=== PATIENT | male | born 1950 | race Caucasian/White ===

== ENCOUNTER 2022-11-30 05:31 | Observation (INO) | payer MEDICARE ==
[2022-11-21 09:33] LABS: BASOPHILS # (AUTO) 0.1 (0.0-0.1); BASOPHILS % 0.7 % (0.0-1.0); EOSINOPHILS # (AUTO) 0.5 (0.0-0.4); EOSINOPHILS % 5.9 % (0.0-6.0); HEMATOCRIT 36.8 % (38.2-49.6); HEMOGLOBIN 12.3 g/dL (14.0-18.0); LYMPHOCYTES # (AUTO) 2.3 (1.0-3.2); LYMPHOCYTES % 26.7 % (18.0-39.1); MEAN CORPUSCULAR HEMOGLOBIN 32.2 pg (28-32); MEAN CORPUSCULAR HGB CONC 33.4 g/dL (31-35); MEAN CORPUSCULAR VOLUME 96.3 fL (81-99); MONOCYTES # (AUTO) 0.8 (0.2-0.8); MONOCYTES % 9.3 % (4.4-11.3); NEUTROPHILS # (AUTO) 4.8 (2.1-6.9); NEUTROPHILS % 56.1 % (38.7-80.0); PLATELET COUNT 274 x10e3/uL (140-360); RED BLOOD COUNT 3.82 x10e6/uL (4.3-5.7)
[2022-11-21 10:13] LABS: ANION GAP 16.3 mmol/L (8-16); CALCIUM 8.8 mg/dL (8.4-10.2); CREATININE, SERUM 0.83 mg/dL (0.72-1.25); POTASSIUM 4.3 mmol/L (3.5-5.1)
[2022-11-21 10:35] LABS: INR 0.96
[2022-11-21 10:37] LABS: PARTIAL THROMBOPLASTIN TIME 29.7 seconds (23.8-35.5)
[~2022-11-30] VITALS: Ht 172.7 cm; Wt 101.2 kg
[~2022-11-30 05:31] MED LIST: ATORVASTATIN CA20 MG PO; BC POWDER PACK1 EAC1 PO; CARVEDILOL25 MG PO; FINASTERIDE5 MG PO; FLOMAX0.4 MG PO; LISINOPRIL10 MG PO; LYRICA100 MG PO; MELATONIN3 MG PO; OMEPRAZOLE40 MG PO; PRESERVISION A1 EAC2 PO; PROVENTIL HFA6.7 GM INH; RESTASIS1 EACH; SYMBICORT 80-10.2 GM INH; THROMBIN FOR SOLN 5,000 UNIT VIAL ONE; Vancomycin IV 1 GM VIAL ONE
[2022-11-30] MEDS ORDERED: Vancomycin IV 1 GM VIAL ONE (06:48)
[2022-11-30] MEDS ORDERED: LIDOCAINE 1% W/EPINEPHRINE 20 ML VIAL ONE (06:48)
[2022-11-30] MEDS ORDERED: THROMBIN FOR SOLN 5,000 UNIT VIAL ONE (06:48)
[2022-11-30] MEDS ORDERED: CEFAZOLIN SODIUM 2 GM ONE (06:52)
[2022-11-30] MEDS ORDERED: ACETAMINOPHEN 1000 MG/100 ML 100 ML IV ONE (07:14)
[2022-11-30] MEDS ORDERED: SUGAMMADEX SODIUM 200 MG/2 ML VIAL IV ONE (07:15)
[2022-11-30] MEDS ORDERED: MORPHINE SULFATE 5 MG/ML VIAL IM PRN (09:45)
[2022-11-30] MEDS ORDERED: MAGNESIUM/ALUMINUM/SIMETHICONE 30 ML UDC PO PRN (09:45)
[2022-11-30] MEDS ORDERED: ONDANSETRON HCL INJ 2MG/ML 2ML 2 MG/ML VIAL IV PRN (09:45)
[2022-11-30] MEDS ORDERED: ALBUTEROL SULFATE HFA 8GM INHALATION AEROSOL INH PRN (09:45)
[2022-11-30] MEDS ORDERED: HYDROMORPHONE 2MG/ML 2 MG/ML ML IV PRN (09:45)
[2022-11-30] MEDS ORDERED: OXYCODONE/ACETAMINOPHEN 5-325 1 EACH TABLET PO PRN (09:45)
[2022-11-30] MEDS ORDERED: PROMETHAZINE HCL (IM) 25 MG/ML VIAL IM PRN (09:45)
[2022-11-30] MEDS ORDERED: ZOLPIDEM TARTRATE 5 MG TAB PO PRN (09:45)
[2022-11-30] MEDS ORDERED: ACETAMINOPHEN 325 MG TAB PO PRN (09:45)
[2022-11-30] MEDS ORDERED: CARISOPRODOL 350 MG TAB PO PRN (09:45)
[2022-11-30] MEDS ORDERED: HYDROCODON-ACE1 EA12 PO (10:48)
[2022-11-30 11:09] VITALS: BP_SYST 151; BP_SYST 154; BP_DIAS 81; BP_DIAS 91
[2022-11-30] MEDS ORDERED: ROCURONIUM BROMIDE 10 MG/ML 5ML VIAL IV ONE (12:11)
[2022-11-30] MEDS ORDERED: POVIDONE IODINE 0.05% 0.05 % ML PO ONE (12:11)
[2022-11-30] MEDS ORDERED: KETOROLAC TROMETHAMINE 30 MG/ML VIAL ONE (12:11)
[2022-11-30] MEDS ORDERED: ONDANSETRON HCL INJ 2MG/ML 2ML 2 MG/ML VIAL ONE (12:11)
[2022-11-30] MEDS ORDERED: GLYCOPYRROLATE INJ 0.2 MG/ML VIAL ONE (12:11)
[2022-11-30] MEDS ORDERED: LIDOCAINE HCL 2% LOCAL INJ 5 ML SDV VIAL INJ ONE (12:11)
[2022-11-30] MEDS ORDERED: DEXAMETHASONE SOD PHOS INJ 4 MG/ML SDV ONE (12:11)
[2022-11-30] MEDS ORDERED: PROPOFOL IV EMULSION 10 MG/ML 20 ML VIAL ONE (12:11)
[2022-11-30] MEDS ORDERED: NEOSTIGMINE 1 MG/ML 10ML VIAL ONE (12:11)
[2022-11-30] MEDS ORDERED: SEVOFLURANE INHAL SOLN 250 ML PEN BTL ONE (12:11)
[2022-11-30 12:19] VITALS: BP 154/91
[2022-11-30] MEDS: LACTATED RINGER'S 1,000 ML IV SCH ×2 (12:19→16:14)
[2022-11-30 12:20] VITALS: BP 154/91
[2022-11-30] MEDS ORDERED: FENTANYL CITRATE/PF 100MCG/2 ML INJ ONE (12:33)
[2022-11-30] MEDS: PREGABALIN 50 MG CAP PO SCH (16:24)
[2022-11-30] MEDS: LISINOPRIL 20 MG TAB PO SCH (16:24)
[2022-11-30 16:44] VITALS: BP 134/89
[2022-11-30] MEDS ORDERED: BUDESONIDE/FORMOTEROL FUMARATE 80/4.5MCG 6.9 GM INH AEROSOL IH SCH (19:00)
[2022-11-30 20:00] VITALS: BP 141/83
[2022-11-30] MEDS ORDERED: TAMSULOSIN HCL 0.4 MG CAP PO SCH (21:00)
[2022-11-30] MEDS ORDERED: MELATONIN 3 MG TAB PO SCH (21:00)
[2022-11-30] MEDS ORDERED: FINASTERIDE 5 MG TAB PO SCH (21:00)
[2022-11-30] MEDS: (Cyclosporine (Restasis) 1 DROP) OP SCH (21:00)
[2022-11-30] MEDS ORDERED: ATORVASTATIN 40 MG TAB PO SCH (21:00)
[2022-12-01] MEDS: LACTATED RINGER'S 1,000 ML IV SCH (02:25)
[2022-12-01 08:36] VITALS: BP 141/83
[2022-12-01 08:41] VITALS: BP 143/87
[2022-12-01] MEDS ORDERED: PANTOPRAZOLE SOD 40 MG TABEC PO SCH (09:00)
[2022-12-01] MEDS: (Cyclosporine (Restasis) 1 DROP) OP SCH (09:00)
[2022-12-01] MEDS ORDERED: CARVEDILOL 12.5 MG TAB PO SCH (09:00)
[2022-12-01] MEDS ORDERED: NON-FORMULARY MEDICATION (Carvedilol 25 MG) PO SCH (09:00)
[2022-12-01] MEDS: PREGABALIN 50 MG CAP PO SCH (09:09)
[2022-12-01] MEDS: LISINOPRIL 20 MG TAB PO SCH (09:10)
== END 2022-12-01 10:36 | disposition home or self-care (01) ==
LOC: OR 05:31 → PACU V 09:40 → MED/SURG3 10:47
PROVIDERS: ADMIT Neurological Surgery; ATTEND Neurological Surgery
DX: M48.062 Spinal stenosis, lumbar region with neurogenic claudication (principal); Z01.818 Encounter for other preprocedural examination; Z20.822 Contact with and (suspected) exposure to COVID-19; I10 Essential (primary) hypertension; Z86.73 Personal history of transient ischemic attack (TIA), and cerebral infarction without residual deficits; N40.1 Benign prostatic hyperplasia with lower urinary tract symptoms
CPT/HCPCS: 0223U ×2; 36415 ×2; 63047; 63048; 71046; 72020; 80048; 85025; 85610; 85730; 86850 ×2; 86900 ×2; 88304; 93005; 94664; 94799 ×2; 97161; G0378 ×2; J0131; J0690 ×2; J1100; J1885; J2001; J2405; J2704; J2710; J3010; J3370; J7121; S0164

== ENCOUNTER 2025-05-29 13:20 | Inpatient (IN) | payer MEDICARE ==
[~2025-05-29] VITALS: Ht 172.7 cm; Wt 104.6 kg
[~2025-05-29 13:20] MED LIST changes: +HYDROCODON-ACE1 EA12 PO; -THROMBIN FOR SOLN 5,000 UNIT VIAL ONE; -Vancomycin IV 1 GM VIAL ONE
[2025-05-29 15:32] LABS: BASOPHILS % 0.3 % (0.0-1.0); EOSINOPHILS % 5.2 % (0.0-6.0); LYMPHOCYTES % 8.0 % (18.0-39.1); MONOCYTES % 8.0 % (4.4-11.3); NEUTROPHILS % 75.4 % (38.7-80.0); RED CELL DISTRIBUTION WIDTH 15.2 % (11.7-14.4)
[2025-05-29 15:39] LABS: LEUKOCYTE ESTERASE ,URINE NEGATIVE (NEGATIVE); PROTEIN,URINE DIPSTICK 1+ (NEGATIVE); URINE UROBILINOGEN 0.2 mg/dL (0.2 - 1)
[2025-05-29] MEDS: SODIUM CHLORIDE 0.9% 1000ML 1,000 ML IV STA (15:42)
[2025-05-29] MEDS: ONDANSETRON HCL INJ 2MG/ML 2ML 2 MG/ML VIAL IV STA (15:43)
[2025-05-29 15:49] LABS: EPITHELIAL CELLS,URINE FEW /LPF; INR 1.04
[2025-05-29 15:56] LABS: EST GLOMERULAR FILTRATION RATE 90.0 ML/MIN (>=60)
[2025-05-29] MEDS ORDERED: IOPAMIDOL 370 MG/ML 100 ML INFUS..BTL INJ ONE (16:25)
[2025-05-29] MEDS: MAGNESIUM SULFATE 2GM/50ML 50 ML IV ONE ×2 (16:37→20:28)
[2025-05-29 17:45] VITALS: TEMP 97.6
[2025-05-29 18:43] VITALS: PULSE 91; RESP 24; O2SAT 97
[2025-05-29] MEDS: ALBUTEROL/IPRATROPIUM 3 ML NEB NEB ONE (18:46)
[2025-05-29 18:50] LABS: CORONAVIRUS COVID-19 AG NEGATIVE (NEGATIVE)
[2025-05-29] MEDS ORDERED: ONDANSETRON HCL INJ 2MG/ML 2ML 2 MG/ML VIAL IV PRN (19:30)
[2025-05-29] MEDS ORDERED: Morphine 2mg Syringe 2 MG/ML SYR IV PRN (19:30)
[2025-05-29 20:00] VITALS: PULSE 87; RESP 19
[2025-05-29] MEDS: LACTATED RINGER'S 1,000 ML INJ ONE (20:29)
[2025-05-29 21:26] VITALS: BP 138/51; PULSE 73; RESP 20; TEMP 98.9; O2SAT 99
[2025-05-29 21:30] VITALS: BP 138/51; PULSE 73; RESP 20; TEMP 98.9; O2SAT 99
[2025-05-29] MEDS ORDERED: FOLIC ACID0.4 MG PO (23:25)
[2025-05-29 23:33] VITALS: PULSE 76; RESP 20; O2SAT 98
[2025-05-29] MEDS ORDERED: [UNRECOGNIZED DRUG - CODE] PO (23:33)
[2025-05-29] MEDS ORDERED: SODIUM CHLORI1000 MG PO (23:33)
[2025-05-29] MEDS ORDERED: CENTRUM ADULTS1 EACH PO (23:33)
[2025-05-29] MEDS: ALBUTEROL/IPRATROPIUM 3 ML NEB NEB SCH (23:43)
[2025-05-30] VITALS (11 sets, daily range): BP systolic 141–186; BP diastolic 81–93; PULSE 63–106; RESP 18–22; TEMP 97.6–99; O2SAT 95–100
[2025-05-30] MEDS ORDERED: DIPHENHYDRAMINE HCL 25 MG CAP PO PRN (02:00)
[2025-05-30] MEDS ORDERED: SIMETHICONE 80 MG CHEW PO PRN (02:00)
[2025-05-30] MEDS ORDERED: LIDOCAINE 4% PATCH TP PRN (02:00)
[2025-05-30] MEDS ORDERED: ACETAMINOPHEN 325 MG TAB PO PRN (02:00)
[2025-05-30] MEDS ORDERED: DEXTROSE 50% SYRINGE 50 ML IV PRN (02:00)
[2025-05-30] MEDS ORDERED: DOCUSATE SODIUM 100 MG CAP PO PRN (02:00)
[2025-05-30] MEDS ORDERED: ALBUTEROL/IPRATROPIUM 3 ML NEB NEB PRN (02:00)
[2025-05-30 04:47] LABS: BASOPHILS % 0.2 % (0.0-1.0); EOSINOPHILS % 3.3 % (0.0-6.0); LYMPHOCYTES % 5.7 % (18.0-39.1); MONOCYTES % 7.4 % (4.4-11.3); NEUTROPHILS % 81.1 % (38.7-80.0); RED CELL DISTRIBUTION WIDTH 15.2 % (11.7-14.4)
[2025-05-30 07:23] LABS: EST GLOMERULAR FILTRATION RATE 95.0 ML/MIN (>=60)
[2025-05-30] MEDS: PANTOPRAZOLE SOD 40 MG TABEC PO SCH (08:53)
[2025-05-30] MEDS: BENZONATATE 100 MG CAP PO PRN (08:56)
[2025-05-30] MEDS: SODIUM CHLORIDE 1 GM TAB PO SCH (16:05)
[2025-05-30] MEDS: ENOXAPARIN SOD INJ 40 MG/0.4 ML SYR SC SCH (16:05)
[2025-05-30] MEDS: SODIUM CHLORIDE 0.9% 1000ML 1,000 ML IV SCH (16:05)
[2025-05-30] MEDS ORDERED: BISACODYL 10 MG SUPP PR PRN (17:30)
[2025-05-30] MEDS: FLUTICASONE PROPIONATE NASAL SPRAY NS SCH (17:30)
[2025-05-30] MEDS: HYDRALAZINE HCL 20 MG/ML VIAL IV PRN (17:34)
[2025-05-30] MEDS: POTASSIUM CHLORIDE 20 MEQ TAB CR PO STA (18:01)
[2025-05-30] MEDS: CARVEDILOL 12.5 MG TAB PO SCH (18:02)
[2025-05-30] MEDS: BISACODYL 10 MG SUPP PR ONE (18:02)
[2025-05-30] MEDS: GUAIFENESIN/CODEINE 5 ML LIQD PO PRN (18:30)
[2025-05-30] MEDS: TAMSULOSIN HCL 0.4 MG CAP PO SCH (20:56)
[2025-05-30] MEDS: ATORVASTATIN 40 MG TAB PO SCH (20:57)
[2025-05-30 23:42] LABS: % IRON SATURATION 5 % (15-50)
[2025-05-31] VITALS (10 sets, daily range): BP systolic 120–160; BP diastolic 73–95; PULSE 74–97; RESP 18–22; TEMP 97.3–98.4; O2SAT 96–100
[2025-05-31] MEDS: BUDESONIDE/FORMOTEROL 80/4.5 MCG INHALER IH SCH (07:03)
[2025-05-31 07:44] LABS: BASOPHILS % 0.2 % (0.0-1.0); EOSINOPHILS % 4.2 % (0.0-6.0); LYMPHOCYTES % 4.9 % (18.0-39.1); MONOCYTES % 7.3 % (4.4-11.3); NEUTROPHILS % 79.4 % (38.7-80.0); RED CELL DISTRIBUTION WIDTH 15.4 % (11.7-14.4)
[2025-05-31 07:58] LABS: OSMOLALITY,SERUM 244 mOsm/kg (278-305)
[2025-05-31 07:59] LABS: PHOSPHORUS 3.5 MG/DL (2.3-4.7)
[2025-05-31 08:00] LABS: EST GLOMERULAR FILTRATION RATE 97.0 ML/MIN (>=60)
[2025-05-31] MEDS: LISINOPRIL 20 MG TAB PO SCH (09:16)
[2025-05-31] MEDS: ASPIRIN 81 MG ENTERIC COATED PO SCH (09:16)
[2025-05-31] MEDS: LORATADINE 10 MG TAB PO SCH (09:17)
[2025-05-31] MEDS: FOLIC ACID 1 MG TAB PO SCH (09:35)
[2025-05-31] MEDS: SODIUM FERRIC GLUCONATE COMPLX 250 MG in SODIUM CHLORIDE 0.9% 100 ML IV SCH (10:22)
[2025-05-31 18:37] LABS: EST GLOMERULAR FILTRATION RATE 97 ML/MIN (>=60)
[2025-06-01] VITALS (14 sets, daily range): BP systolic 132–149; BP diastolic 67–92; PULSE 58–93; RESP 18–22; TEMP 97.3–98; O2SAT 91–100
[2025-06-01 05:47] LABS: BASOPHILS % 0.3 % (0.0-1.0); EOSINOPHILS % 3.1 % (0.0-6.0); LYMPHOCYTES % 4.6 % (18.0-39.1); MONOCYTES % 8.2 % (4.4-11.3); NEUTROPHILS % 79.7 % (38.7-80.0); RED CELL DISTRIBUTION WIDTH 15.2 % (11.7-14.4)
[2025-06-01 06:27] LABS: EST GLOMERULAR FILTRATION RATE 99 ML/MIN (>=60)
[2025-06-01] MEDS ORDERED: IRON SUCROSE 100 MG in SODIUM CHLORIDE 0.9% 100 ML IV SCH (09:00)
[2025-06-01 16:22] LABS: EST GLOMERULAR FILTRATION RATE 96 ML/MIN (>=60)
[2025-06-01] MEDS: MAGNESIUM SULFATE 2GM/50ML 50 ML IV SCH (17:02)
[2025-06-01] MEDS: BISACODYL 5 MG TAB EC PO ONE ×2 (17:04→18:33)
[2025-06-01] MEDS: KCL 20MEQ/.9 SOD CHL 1,000 ML IV SCH (17:18)
[2025-06-01] MEDS: FUROSEMIDE INJ 10 MG/ML 4 ML VIAL IV ONE (17:25)
[2025-06-01] MEDS: SODIUM CHLORIDE 1 GM TAB PO SCH (17:25)
[2025-06-01] MEDS: MELATONIN 5 MG TABLET PO PRN (20:28)
[2025-06-01] MEDS: CITRATE OF MAGNESIA 300ML BOTTLE PO ONE (22:24)
[2025-06-02] VITALS (13 sets, daily range): BP systolic 125–177; BP diastolic 70–89; PULSE 78–101; RESP 18–22; TEMP 97.4–98.5; O2SAT 94–100
[2025-06-02] MEDS: CITRATE OF MAGNESIA 300ML BOTTLE PO ONE (05:16)
[2025-06-02 05:54] LABS: EST GLOMERULAR FILTRATION RATE 95 ML/MIN (>=60)
[2025-06-02 07:13] LABS: FOLATE (REF LAB) 13.8 ng/mL (>3.0)
[2025-06-02] MEDS: MAGNESIUM SULFATE 2GM/50ML 50 ML IV ONE (10:51)
[2025-06-02] MEDS: POTASSIUM CHLORIDE 20MEQ/100ML 200 ML IV ONE (10:52)
[2025-06-02] MEDS: D5NS/KCL 20MEQ 1,000 ML IV SCH (17:14)
[2025-06-02] MEDS: FUROSEMIDE INJ 10 MG/ML 2 ML VIAL IV ONE (22:11)
[2025-06-03] VITALS (10 sets, daily range): BP systolic 136–163; BP diastolic 72–78; PULSE 69–99; RESP 18–20; TEMP 97.5–97.9; O2SAT 92–100
[2025-06-03 05:13] LABS: BASOPHILS % 0.2 % (0.0-1.0); EOSINOPHILS % 1.2 % (0.0-6.0); LYMPHOCYTES % 4.7 % (18.0-39.1); MONOCYTES % 7.3 % (4.4-11.3); NEUTROPHILS % 84.4 % (38.7-80.0); RED CELL DISTRIBUTION WIDTH 15.4 % (11.7-14.4)
[2025-06-03 05:46] LABS: EST GLOMERULAR FILTRATION RATE 96.0 ML/MIN (>=60); PHOSPHORUS 3.5 MG/DL (2.3-4.7)
[2025-06-03] MEDS: KCL 20MEQ/.9 SOD CHL 1,000 ML IV SCH (09:30)
[2025-06-03] MEDS: POTASSIUM CHLORIDE 20MEQ/100ML 100 ML IV SCH (10:25)
[2025-06-03] MEDS: BUMETANIDE INJ 0.25MG/ML 4ML VIAL IV ONE (10:35)
[2025-06-03] MEDS ORDERED: LIDOCAINE HCL 2% LOCAL INJ 5 ML SDV VIAL INJ ONE (14:55)
[2025-06-03] MEDS ORDERED: PROPOFOL IV EMULSION 10 MG/ML 20 ML VIAL ONE ×2 (14:55→15:16)
[2025-06-03] MEDS ORDERED: METOCLOPRAMIDE HCL 10 MG/2ML VIAL ONE (15:12)
[2025-06-03] MEDS ORDERED: BENZOCAINE/TETRACAINE/BUTAMBEN AERO SPRAY 56 GM CAN TOP ONE (18:00)
[2025-06-04] VITALS (13 sets, daily range): BP systolic 141–163; BP diastolic 72–90; PULSE 87–99; RESP 16–19; TEMP 97.7–98.8; O2SAT 93–100
[2025-06-04 05:29] LABS: BASOPHILS % 0.2 % (0.0-1.0); EOSINOPHILS % 0.6 % (0.0-6.0); LYMPHOCYTES % 4.4 % (18.0-39.1); MONOCYTES % 6.9 % (4.4-11.3); NEUTROPHILS % 86.9 % (38.7-80.0); RED CELL DISTRIBUTION WIDTH 15.9 % (11.7-14.4)
[2025-06-04 05:58] LABS: EST GLOMERULAR FILTRATION RATE 96.0 ML/MIN (>=60)
[2025-06-04] MEDS: CHLORASEPTIC SPRAY 177 ML BTL MM PRN (08:59)
[2025-06-04] MEDS: POTASSIUM CHLORIDE 20MEQ/100ML 100 ML IV SCH (10:54)
[2025-06-04] MEDS: FUROSEMIDE INJ 10 MG/ML 4 ML VIAL IV SCH (22:06)
[2025-06-05] VITALS (12 sets, daily range): BP systolic 114–144; BP diastolic 64–75; PULSE 82–100; RESP 16–19; TEMP 97.5–98.8; O2SAT 94–100
[2025-06-05] MEDS ORDERED: ROCURONIUM BROMIDE 1 ML IV ONE (12:12)
[2025-06-05] MEDS ORDERED: SUCCINYLCHOLINE CHLORIDE 20 MG/ML 10ML VIAL ONE (12:12)
[2025-06-05] MEDS ORDERED: PROPOFOL IV EMULSION 10 MG/ML 20 ML VIAL ONE (12:12)
[2025-06-05] MEDS ORDERED: FENTANYL CITRATE/PF 100MCG/2 ML INJ ONE (12:12)
[2025-06-05] MEDS ORDERED: LIDOCAINE HCL 2% LOCAL INJ 5 ML SDV VIAL INJ ONE (12:12)
[2025-06-05] MEDS ORDERED: SUGAMMADEX SODIUM 200 MG/2 ML VIAL IV ONE (12:12)
[2025-06-05] MEDS ORDERED: SEVOFLURANE INHAL SOLN 250 ML PEN BTL ONE (12:12)
[2025-06-05] MEDS ORDERED: ONDANSETRON HCL INJ 2MG/ML 2ML 2 MG/ML VIAL ONE (12:12)
[2025-06-05] MEDS ORDERED: ACETAMINOPHEN 1000 MG/100 ML 100 ML IV ONE (12:12)
[2025-06-05] MEDS ORDERED: DEXAMETHASONE SOD PHOS INJ 4 MG/ML SDV ONE (12:12)
[2025-06-05] MEDS ORDERED: MIDAZOLAM HCL 2 MG/2 ML VIAL ONE (12:50)
[2025-06-05] MEDS ORDERED: HYDROCODONE/APAP 7.5MG-325MG 1 EA TAB PO PRN (15:30)
[2025-06-05] MEDS ORDERED: ACETAMINOPHEN 1000 MG/100 ML IV PRN (15:30)
[2025-06-05 16:51] LABS: PHOSPHORUS 4.9 MG/DL (2.3-4.7)
[2025-06-06] VITALS (11 sets, daily range): BP systolic 102–144; BP diastolic 62–78; PULSE 84–101; RESP 18–24; TEMP 97.6–98.8; O2SAT 92–99
[2025-06-06 06:16] LABS: BASOPHILS % 0.2 % (0.0-1.0); EOSINOPHILS % 1.3 % (0.0-6.0); LYMPHOCYTES % 4.5 % (18.0-39.1); MONOCYTES % 6.7 % (4.4-11.3); NEUTROPHILS % 85.9 % (38.7-80.0); RED CELL DISTRIBUTION WIDTH 16.8 % (11.7-14.4)
[2025-06-06 06:35] LABS: EST GLOMERULAR FILTRATION RATE 94.0 ML/MIN (>=60)
[2025-06-06] MEDS: MAGNESIUM HYDROXIDE 30 ML UDC PO ONE (11:36)
[2025-06-06] MEDS: POTASSIUM CHLORIDE 20 MEQ TAB CR PO PRN (14:45)
[2025-06-06] MEDS: BISACODYL 10 MG SUPP PR SCH (21:09)
[2025-06-07] VITALS (10 sets, daily range): BP systolic 120–139; BP diastolic 63–76; PULSE 82–91; RESP 18–21; TEMP 98–98.8; O2SAT 92–100
[2025-06-07 05:59] LABS: BASOPHILS % 0.3 % (0.0-1.0); EOSINOPHILS % 3.1 % (0.0-6.0); LYMPHOCYTES % 6.2 % (18.0-39.1); MONOCYTES % 9.0 % (4.4-11.3); NEUTROPHILS % 79.3 % (38.7-80.0); RED CELL DISTRIBUTION WIDTH 17.2 % (11.7-14.4)
[2025-06-07 06:27] LABS: EST GLOMERULAR FILTRATION RATE 92.0 ML/MIN (>=60); PHOSPHORUS 3.1 MG/DL (2.3-4.7)
[2025-06-07] MEDS ORDERED: ENOXAPARIN SOD INJ 40 MG/0.4 ML SYR SC SCH (17:00)
[2025-06-08 09:57] LABS: KAPPA/LAMBDA RATIO 0.76
[2025-06-08 09:58] LABS: KAPPA LIGHT CHAINS 20.2; LAMBDA LIGHT CHAINS 26.5
[2025-06-08 09:59] LABS: GLOBULIN TOTAL 3.1; SPE GAMMA GLOBULIN 0.7; SPE TOTAL PROTEIN 5.2
[2025-06-08 10:00] LABS: SPE ALPHA 2 GLOBULIN 1.2
[2025-06-08 10:01] LABS: A/G RATIO 0.7; SPE ALPHA 1 GLOBULIN 0.5
== END 2025-06-07 17:00 | disposition home or self-care (01) | DRG 335 ==
LOC: ER 14:46 → ERHOLD 19:26 → MED/SURG2 21:26
PROVIDERS: ADMIT Internal Medicine; ATTEND Internal Medicine
PROC: 0DB68ZX Excision of Stomach, Via Natural or Artificial Opening Endoscopic, Diagnostic (ICD-10-PCS; 2025-06-03)
PROC: 0DB78ZX Excision of Stomach, Pylorus, Via Natural or Artificial Opening Endoscopic, Diagnostic (ICD-10-PCS; 2025-06-03)
PROC: 0DBU4ZX Excision of Omentum, Percutaneous Endoscopic Approach, Diagnostic (ICD-10-PCS; 2025-06-05)
PROC: 0DNU4ZZ Release Omentum, Percutaneous Endoscopic Approach (ICD-10-PCS; principal; 2025-06-05 13:35)
DX: K42.0 Umbilical hernia with obstruction, without gangrene (principal); I50.33 Acute on chronic diastolic (congestive) heart failure; J96.01 Acute respiratory failure with hypoxia; K55.069 Acute infarction of intestine, part and extent unspecified; J69.0 Pneumonitis due to inhalation of food and vomit; K56.7 Ileus, unspecified; E87.1 Hypo-osmolality and hyponatremia; R18.8 Other ascites; K56.609 Unspecified intestinal obstruction, unspecified as to partial versus complete obstruction; K59.00 Constipation, unspecified; E88.09 Other disorders of plasma-protein metabolism, not elsewhere classified; E78.5 Hyperlipidemia, unspecified; R55 Syncope and collapse; E83.42 Hypomagnesemia; J06.9 Acute upper respiratory infection, unspecified; D50.9 Iron deficiency anemia, unspecified; K21.00 Gastro-esophageal reflux disease with esophagitis, without bleeding; D75.838 Other thrombocytosis; K57.30 Diverticulosis of large intestine without perforation or abscess without bleeding; J44.9 Chronic obstructive pulmonary disease, unspecified; K44.9 Diaphragmatic hernia without obstruction or gangrene; K29.70 Gastritis, unspecified, without bleeding; R14.0 Abdominal distension (gaseous); I25.10 Atherosclerotic heart disease of native coronary artery without angina pectoris; I11.9 Hypertensive heart disease without heart failure; N40.0 Benign prostatic hyperplasia without lower urinary tract symptoms; Z11.52 Encounter for screening for COVID-19; E66.9 Obesity, unspecified; Z68.35 Body mass index [BMI] 35.0-35.9, adult; Z79.51 Long term (current) use of inhaled steroids; Z90.49 Acquired absence of other specified parts of digestive tract; Z87.891 Personal history of nicotine dependence
CPT/HCPCS: 36415; 43239; 71045; 74018; 74177; 80048; 80053; 81001; 82378; 82550; 82607; 82728; 82746; 82947; 83036; 83540; 83690; 83735; 83880; 83935; 84100; 84165; 84295; 84300; 84443; 84466; 84484; 84520; 85025; 85045; 85610; 85730; 88304; 88305; 88307; 88331; 88342; 93005; 93306; 94640; 94760; 94799; 99252; 99284; J0330; J0360; J0696; J1100; J1650; J1756; J1938; J2003; J2250; J2405; J2470; J2765; J2916; J3475; J3480; J7030; J7050; Q9967